=== PATIENT | male | born 1950 | race Caucasian/White ===

== ENCOUNTER 2024-04-08 15:16 | Inpatient (IN) | payer OTHER ==
--- NOTE | 2024-04-08 16:14 | RAD REPORT ---
EXAMINATION: US RIGHT LOWER EXTREMITY VENOUS DOPPLER CLINICAL INDICATION: SWELLING RIGHT TECHNIQUE: Complete bilateral duplex sonography of the RIGHT lower extremity veins was performed. The examination included compression for vein patency, color Doppler imaging and flow augmentation in response to distal compression of the distal external iliac, common femoral, femoral, popliteal, tibi al, and great and small saphenous veins. COMPARISON: No prior exam. FINDINGS: Duplex sonography testing of the veins of the RIGHT lower extremity was performed. Color flow imaging shows all veins to be compressible with [id number] color filling. Pulsatile and phasic flow is present within all lower extremity deep and superficial veins examined. IMPRESSION: There is no deep vein or superficial vein thrombosis.
[2024-04-08 17:14] LABS: Absolute Basophils 0.1 K/uL (0-0.5); Absolute Lymphocytes (CBC) 1.4 K/uL (0.7-4.9); Absolute Monocytes 1.1 K/uL (0.1-1.3); Basophils % 0.4 % (0-1.3); Eosinophils % 0.4 % (0-4.4); Hematocrit 37.8 % (39.6-49.0); Lymphocytes % 11.2 % (15.3-44.8); MCH 29.8 pg (27.0-35.0); MCHC 34.4 g/dL (32.0-36.0); MCV 86.7 fL (80-100); MPV 7.7 fL (7.6-11.3); Monocytes % 8.7 % (3.3-12.3); Neutrophils % 79.3 % (41.7-73.7); Nucleated Red Blood Cells % 0.1 % (0-0); Platelets 208 thou/uL (152-406); RBC Red Blood Cell Count 4.36 M/uL (4.33-5.43); Red Cell Distribution Width 13.7 % (12.1-15.2)
[2024-04-08] MEDS ORDERED: NA CHLORIDE 0.9% 250 ML ONE (17:28)
[2024-04-08] MEDS ORDERED: NA CHLORIDE 0.9% 100 ML ONE (17:28)
[2024-04-08] MEDS ORDERED: VANCOMYCIN 1 GM/VIAL ONE (17:28)
[2024-04-08 17:29] LABS: Anion Gap 9.1 mEq/L (5.0-15.0); Potassium 4.1 mEq/L (3.5-5.1)
[2024-04-08] MEDS ORDERED: PIPERACIL/TAZO 3.375 GM VIAL IV ONE (17:29)
[2024-04-08] MEDS ORDERED: NA CHLORIDE 0.9% 1,000 ML ONE (17:29)
[2024-04-08 17:30] LABS: Albumin 3.4 g/dL (3.4-5.0); Albumin/Globulin Ratio 0.8 (1.1-1.8); Bilirubin Total 0.4 mg/dL (0.2-1.0); Globulin 4.1 g/dL (2.3-3.5); Protein, Total 7.5 g/dL (6.4-8.2)
--- NOTE | 2024-04-08 18:36 | ER ---
Nurse's Notes [facility] Name: Constantino Carlos Age: 73 yrs Sex: Male : 1950 Arrival Date: 04/08/2024 Time: 15:16 Bed 26 Private MD: Diagnosis: Cellulitis, abscess Presentation: 04/08 15:35 Chief complaint: Patient states: REDNESS AND SWELLING TO RIGHT KNEE ONSET SUNDAY. PT cm10 STATES THAT HE WENT TO URGENT CARE ON SUNDAY AND WAS PLACED ON BACTRIM AND CEPHALEXIN. PT STATES THAT THE REDNESS IS GETTING WORSE. Coronavirus screen: Client denies travel out of the [place] in the last 14 days. Ebola Screen: Patient denies travel to an Ebola-affected area in the 21 days before illness onset. No symptoms or risks identified at this time. Initial Sepsis Screen: Does the patient meet any 2 criteria? HR > 90 bpm. Does the patient have a suspected source of infection? No. Patient's initial sepsis screen is negative. Risk Assessment: Do you want to hurt yourself or someone else? Patient reports no desire to harm self or others. Onset of symptoms was April 08, 2024. 15:35 Method Of Arrival: Ambulatory cm10 15:35 Acuity: REED 3 cm10 Triage Assessment: 15:37 General: Appears in no apparent distress. uncomfortable, Behavior is calm, cooperative. cm10 Pain: Complains of pain in right knee Pain does not radiate. Pain currently is 2 out of 10 on a pain scale. at worst was 8 out of 10 on a pain scale. Aggravated by increased activity. Neuro: No deficits noted. Level of Consciousness is awake, alert, obeys commands, Oriented to person, place, time, situation, Appropriate for age. Respiratory: No deficits noted. Airway is patent Respiratory effort is even, unlabored, Respiratory pattern is regular, symmetrical. Derm: Wound noted right knee Abscess located on right knee. Historical: - Allergies: 15:35 No Known Allergies; cm10 - PMHx: 15:35 Hypercholesterolemia; Hypertensive disorder; Diabetes mellitus; cm10 15:39 Gout; cm10 - Immunization history:: Adult Immunizations up to date. - Infectious Disease History:: Denies. - Social history:: Smoking status: Patient denies any tobacco usage or history of. Screenin:30 [facility] ED Fall Risk Assessment (Adult) History of falling in the last 3 months, db including since admission No falls in past 3 months (0 pts) Confusion or Disorientation No (0 pts) Intoxicated or Sedated No (0 pts) Impaired Gait No (0 pts) Mobility Assist Device Used No (0 pt) Altered Elimination No (0 pt) Score/Fall Risk Level 0 - 2 = Low Risk Oriented to surroundings, Maintained a safe environment. Abuse screen: Denies threats or abuse. Denies injuries from another. Nutritional screening: No deficits noted. Tuberculosis screening: No symptoms or risk factors identified. Assessment: 17:30 Reassessment: Patient appears in no apparent distress at this time. Patient and/or db family updated on plan of care and expected duration. Pain level reassessed. Patient is alert, oriented x 3, equal unlabored respirations, skin warm/dry/pink. General: Appears in no apparent distress. comfortable, Behavior is calm, cooperative. Pain: Complains of pain in right knee. Neuro: Level of Consciousness is awake, alert, obeys commands, Oriented to person, place, time, situation. Respiratory: Airway is patent Respiratory effort is even, unlabored, Respiratory pattern is regular, symmetrical. Derm: Abscess located on right knee. 19:20 General: Appears comfortable, Behavior is calm, cooperative. Pain: Complains of pain in ha1 right knee Pain does not radiate. Pain currently is 2 out of 10 on a pain scale. Quality of pain is described as aching. Neuro: Level of Consciousness is awake, alert, obeys commands, Oriented to person, place, time, situation. Cardiovascular: Capillary refill < 3 seconds Patient's skin is warm and dry. Respiratory: Airway is patent Respiratory effort is even, unlabored, Respiratory pattern is regular, symmetrical. GI: No signs and/or symptoms were reported involving the gastrointestinal system. Abdomen is round non-distended. : No signs and/or symptoms were reported regarding the genitourinary system. Derm: Abscess located on right knee. 19:30 Reassessment: provided snacks. ha1 20:30 Reassessment: Patient and/or family updated on plan of care and expected duration. Pain ha1 level reassessed. Patient is alert, oriented x 3, equal unlabored respirations, skin warm/dry/pink. 21:30 Reassessment: Patient and/or family updated on plan of care and expected duration. Pain ha1 level reassessed. Patient is alert, oriented x 3, equal unlabored respirations, skin warm/dry/pink. 22:00 Reassessment: Patient and/or family updated on plan of care and expected duration. Pain ha1 level reassessed. Patient is alert, oriented x 3, equal unlabored respirations, skin warm/dry/pink. Vital Signs: 15:35 BP 144 / 71; Pulse 108; Resp 19; Temp 98.2; Pulse Ox 98% on R/A; Weight 104.33 kg; cm10 Height 5 ft. 7 in. ; Pain 2/10; 17:30 BP 146 / 64; Pulse 92; Resp 16; Pulse Ox 99% ; db 19:30 BP 128 / 60; Pulse 94; Resp 17 S; Pulse Ox 99% on R/A; ha1 20:30 BP 138 / 69; Pulse 101; Resp 19 S; Pulse Ox 98% on R/A; ha1 22:00 BP 117 / 53; Pulse 101; Resp 19 S; Pulse Ox 97% on R/A; ha1 15:35 Body Mass Index 36.02 (104.33 kg, 170.18 cm) cm10 15:35 Pain Scale: Adult cm10 ED Course: 15:20 Patient arrived in ED. ra3 15:24 Slim Coffey MD is Attending Physician. sp3 15:37 Triage completed. cm10 15:39 Arm band placed on left wrist. Patient placed in waiting room. cm10 16:10 US Extremity Venous Unilateral Ltd In Process Unspecified. EDMS 17:00 Inserted saline lock: 20 gauge in right antecubital area, using aseptic technique. ty Blood collected. Flushed with 10 mL NS. 17:00 Initial lab(s) drawn, by me, sent to lab. First set of blood cultures drawn. ty 17:05 Blood Culture Adult (2) Sent. ty 17:05 CBC with Diff Sent. ty 17:06 CMP Sent. ty 17:06 Lactate w/ 2H reflex if indic. Sent. ty 17:23 Jaqui Camacho, RN is Primary Nurse. db 17:30 Patient has correct armband on for positive identification. Bed in low position. Call db light in reach. Side rails up X 1. Pulse ox on. NIBP on. Warm blanket given. Pillow given. 17:30 No provider procedures requiring assistance completed. db 18:35 Marc Melvin MD is Hospitalizing Provider. sp3 22:39 Inserted Patient admitted, IV remains in place. cp4 22:40 Provided Education on: admission. cp4 Administered Medications: 17:30 Drug: NS 0.9% IV 1000 ml IV at 1000 ml once; to be given as a bolus over 60 minutes db Route: IV; Rate: 1000 ml; Site: right antecubital; 18:20 Follow up: Response: No adverse reaction; IV Status: Completed infusion; IV Intake: db 1000ml 17:35 Drug: Piperacillin-Tazobactam IVPB 3.375 grams IVPB once over 60 mins; (mix in NS 100 db mL) Route: IVPB; Infused Over: 60 mins; Site: right antecubital; 18:15 Follow up: Response: No adverse reaction; IV Status: Completed infusion; IV Intake: db 100ml 18:36 Drug: vancoMYCIN IVPB 1 grams IVPB once over 2 hrs Route: IVPB; Infused Over: 2 hrs; db Site: right antecubital; 22:00 Follow up: Response: No adverse reaction; IV Status: Completed infusion; IV Intake: ha1 500ml Medication: 17:30 VIS not applicable for this client. db Intake: 18:15 IV: 100ml; Total: 100ml. db 18:20 IV: 1000ml; Total: 1100ml. db 22:00 IV: 500ml; Total: 1600ml. ha1 Outcome: 18:35 Decision to Hospitalize by Provider. sp3 22:39 Admitted to ER Hold. Please see [facility] for further documentation. cp4 22:39 Condition: stable 22:39 Instructed on the need for admit, 04/09 17:46 Patient left the ED. db Signatures: Dispatcher [employer] Slim Rodriguez MD MD sp3 Genoveva Craven RN RN ha1 Jaqui Camacho RN RN db Kim Maravilla RN RN 10 Reena Regalado cp4 Flora Ohara ra3 Luis Mchugh
--- NOTE | 2024-04-08 18:36 | EDPHYS ---
Physician Documentation [facility] Name: Constantino Carlos Age: 73 yrs Sex: Male : 1950 Arrival Date: 04/08/2024 Time: 15:16 Bed 26 Private MD: ED Physician Slim Coffey HPI: 04/08 16:11 This 73 yrs old Male presents to ER via Ambulatory with complaints of Leg Pain - Right. sp3 16:11 . sp3 16:27 7. sp3 16:41 73-year-old male with history of hyperlipidemia, hypertension, diabetes, gout presents sp3 to the ED with chief complaint swelling and erythema to the right lower extremity just distal to the knee. Patient states has been going on for 3 to 4 days with significant increase in redness and pain. Patient states that he was gardening and may have knelt down and had some light trauma from brush at the tibial tuberosity level. He denies fever, head, neck pain, chest pain, shortness of breath no abdominal pain, vomiting, diarrhea,, rash anywhere else, bleeding or any other signs or symptoms on ROS at this time.. Historical: - Allergies: 15:35 No Known Allergies; cm10 - PMHx: 15:35 Hypercholesterolemia; Hypertensive disorder; Diabetes mellitus; cm10 15:39 Gout; cm10 - Immunization history:: Adult Immunizations up to date. - Infectious Disease History:: Denies. - Social history:: Smoking status: Patient denies any tobacco usage or history of. ROS: 16:42 Constitutional: Negative for fever, chills, and weight loss, Eyes: Negative for injury, sp3 pain, redness, and discharge, Neck: Negative for injury, pain, and swelling, Cardiovascular: Negative for chest pain, palpitations, and edema, Respiratory: Negative for shortness of breath, cough, wheezing, and pleuritic chest pain, Abdomen/GI: Negative for abdominal pain, nausea, vomiting, diarrhea, and constipation, Back: Negative for injury and pain, Neuro: Negative for headache, weakness, numbness, tingling, and seizure, Psych: Negative for depression, anxiety, suicide ideation, homicidal ideation, and hallucinations, Allergy/Immunology: Negative for hives, rash, and allergies, Endocrine: Negative for neck swelling, polydipsia, polyuria, polyphagia, and marked weight changes, Hematologic/Lymphatic: Negative for swollen nodes, abnormal bleeding, and unusual bruising, 16:42 All other systems are negative, Exam: 16:42 Constitutional: This is a well developed, well nourished patient who is awake, alert, sp3 and in no acute distress. Head/Face: Normocephalic, atraumatic. Eyes: Pupils equal round and reactive to light, extra-ocular motions intact. Lids and lashes normal. Conjunctiva and sclera are non-icteric and not injected. Cornea within normal limits. Periorbital areas with no swelling, redness, or edema. Neck: Trachea midline, no thyromegaly or masses palpated, and no cervical lymphadenopathy. Supple, full range of motion without nuchal rigidity, or vertebral point tenderness. No Meningismus. Chest/axilla: Normal chest wall appearance and motion. Nontender with no deformity. No lesions are appreciated. Cardiovascular: Regular rate and rhythm with a normal S1 and S2. No gallops, murmurs, or rubs. Normal PMI, no JVD. No pulse deficits. Respiratory: Lungs have equal breath sounds bilaterally, clear to auscultation and percussion. No rales, rhonchi or wheezes noted. No increased work of breathing, no retractions or nasal flaring. Back: No spinal tenderness. No costovertebral tenderness. Full range of motion. Neuro: Awake and alert, GCS 15, oriented to person, place, time, and situation. Cranial nerves II-XII grossly intact. Motor strength 5/5 in all extremities. Sensory grossly intact. Cerebellar exam normal. Normal gait. 16:42 Musculoskeletal/extremity: 3 cm area of fluctuance consistent with abscess with overlying erythema now spreading to significant parts of the leg both distally and proximally. Patient is mildly tachycardic but afebrile with normal pressure.. Vital Signs: 15:35 BP 144 / 71; Pulse 108; Resp 19; Temp 98.2; Pulse Ox 98% on R/A; Weight 104.33 kg; cm10 Height 5 ft. 7 in. ; Pain 2/10; 17:30 BP 146 / 64; Pulse 92; Resp 16; Pulse Ox 99% ; db 19:30 BP 128 / 60; Pulse 94; Resp 17 S; Pulse Ox 99% on R/A; ha1 20:30 BP 138 / 69; Pulse 101; Resp 19 S; Pulse Ox 98% on R/A; ha1 22:00 BP 117 / 53; Pulse 101; Resp 19 S; Pulse Ox 97% on R/A; ha1 15:35 Body Mass Index 36.02 (104.33 kg, 170.18 cm) cm10 15:35 Pain Scale: Adult cm10 MDM: 15:37 Medical Screening Exam initiated sp3 16:43 Data reviewed: vital signs, nurses notes, lab test result(s), radiologic studies. ED sp3 course: 73-year-old male with right lower extremity pain and erythema. Differential diagnosis includes cellulitis, abscess, other infectious process. I am at highly suspicious of inflammatory joint issue, DVT or any other critical process. Workup will include labs, antibiotics, ultrasound of the right lower extremity venous, and general supportive care with probable admission.. 12 15:40 Order name: Blood Culture Adult (2) sp3 04/08 15:40 Order name: CBC with Diff; Complete Time: 17:36 sp3 04/08 15:40 Order name: CMP; Complete Time: 17:36 sp3 04/08 15:40 Order name: Lactate w/ 2H reflex if indic.; Complete Time: 17:36 sp3 04/08 21:34 Order name: Urinalysis w/ reflexes EDMS 04/08 21:34 Order name: CBC with Automated Diff EDMS 04/08 21:34 Order name: CBC with Automated Diff EDMS 04/08 21:34 Order name: Comprehensive Metabolic Panel EDMS 04/08 21:34 Order name: Comprehensive Metabolic Panel EDMS 04/09 07:56 Order name: Glucose, Ancillary Testing EDMS 04/09 11:59 Order name: Glucose, Ancillary Testing EDMS 04/09 16:28 Order name: Glucose, Ancillary Testing EDMS 04/08 15:40 Order name: US Extremity Venous Unilateral Ltd; Complete Time: 16:40 sp3 04/08 15:40 Order name: IV Saline Lock - Large Bore; Complete Time: 17:05 sp3 04/08 15:40 Order name: Labs collected and sent; Complete Time: 17:05 sp3 04/08 15:40 Order name: Vital Signs; Complete Time: 17:08 sp3 Administered Medications: 17:30 Drug: NS 0.9% IV 1000 ml IV at 1000 ml once; to be given as a bolus over 60 minutes db Route: IV; Rate: 1000 ml; Site: right antecubital; 18:20 Follow up: Response: No adverse reaction; IV Status: Completed infusion; IV Intake: db 1000ml 17:35 Drug: Piperacillin-Tazobactam IVPB 3.375 grams IVPB once over 60 mins; (mix in NS 100 db mL) Route: IVPB; Infused Over: 60 mins; Site: right antecubital; 18:15 Follow up: Response: No adverse reaction; IV Status: Completed infusion; IV Intake: db 100ml 18:36 Drug: vancoMYCIN IVPB 1 grams IVPB once over 2 hrs Route: IVPB; Infused Over: 2 hrs; db Site: right antecubital; 22:00 Follow up: Response: No adverse reaction; IV Status: Completed infusion; IV Intake: ha1 500ml Disposition Summary: 04/08/24 18:35 Hospitalization Ordered Notes: Hospitalization Status: Inpatient Admission sp3 Provider: Marc Melvin sp3 Condition: Stable sp3 Problem: new sp3 Symptoms: have worsened sp3 Bed/Room Type: Standard sp3 Location: Telemetry/MedSurg (Inpatient)(04/09/24 16:04) bd Room Assignment: 207(04/09/24 16:04) bd Diagnosis - Cellulitis, abscess sp3 Forms: - Medication Reconciliation Form sp3 - SBAR form sp3 - Leadership Thank You Letter sp3 Signatures: Dispatcher [employer] EDCrista Payton Lacie, RN RN lg3 Slim Coffey MD MD sp3 Jaqui Camacho RN Kim Cleaning RN RN cm10 Radha Johnson [facility] Genoveva Craven RN ha1 Corrections: (The following items were deleted from the chart) 15:41 15:41 BLOOD CULTURE*+BA.LAB.BRZ ordered. EDMS EDMS 15:41 15:41 CBC+H.LAB.BRZ ordered. EDMS EDMS 15:41 15:41 COMPREHENSIVE METABOLIC PANEL+C.LAB.BRZ ordered. EDMS EDMS 15:41 15:41 LACTATE+C.LAB.BRZ ordered. EDMS EDMS 15:41 15:41 Extremity Venous Uni Ltd+US.RAD.BRZ ordered. EDMS EDMS 20:49 18:35 Telemetry/MedSurg (Inpatient) sp3 kmf 20:49 18:35 sp3 kmf 20:52 20:49 HLD2 kmf lg3 04/09 16:04 12 20:49 [facility] ER HOLD kmf bd 04/09 16:04 12 20:52 ERHOLD- lg3 bd
--- NOTE | 2024-04-08 21:25 | P.HP ---
Certification for Inpatient With expected LOS: >2 Midnights Practitioner: I am a practitioner with admitting privileges, knowledge of patient current condition, hospital course, and medical plan of care. Services: Services provided to patient in accordance with Admission requirements found in Title 42 Section 412.3 of the Code of Federal Regulations Patient History Date of Service: 04/08/24 Reason for admission: cellulitis History of Present Illness: 73-year-old male with history of prediabetes presents to the emergency room with complaints of redness and swelling to the right leg and knee. States that he was working outside and placed knee on the ground. Onset 5 days ago. With progressive redness. Reports that 2 days ago he went to urgent care and was placed on Bactrim and cephalexin. Progressively has gotten worse. He does report some discomfort. He reports having some possible fevers and chills. And does report right lower extremity swelling. He reports he has had skin infecti on in the past w greater than 50 years ago. Emergency room an ultrasound was done of his right lower extremity to rule out DVT Review of Systems 10-point ROS is otherwise unremarkable General: Fever, Chills, Sweats Integumentary: Rash, Other Physical Examination - Physical Exam General: Alert, Oriented x3 HEENT: Atraumatic, Normocephalic Respiratory: Clear to auscultation bilaterally, Normal air movement Cardiovascular: Regular rate/rhythm, Normal S1 S2, Edema Gastrointestinal: Soft and benign, Non-distended Musculoskeletal: Swelling Integumentary: Other (Right lower extremity redness, fluctuation inferior patella with erythema) - Studies Laboratory Data (last 24 hrs) 04/08/24 04/08/24 17:00 17:00 WBC 12.60 H Hgb 13.0 L Hct 37.8 L Plt Count 208 Sodium 138 Potassium 4.1 BUN 18 Creatinine 1.13 Glucose 142 H Total Bilirubin 0.4 AST 17 ALT 27 Alkaline Phosphatase 69 Assessment and Plan - Problems (Diagnosis) (1) Cellulitis Current Visit: Yes Status: Acute - Plan 73-year-old male with history of diabetes, hypertension, hyperlipidemia presents with complaints of right lower extremity swelling and redness. Right lower extremity cellulitis -- With some fluctuance -- IV vancomycin and Zosyn ordered in ER -- He did appear slightly flushed in the emergency room. If this is related to his vancomycin recommend to discontinue that. Will continue that for now we will give him a dose of Benadryl Continue Zosyn Follow-up cultures May need surgical evaluation Diabetes --Monitor fingerstick blood sugars with sliding scale insulin Hypertension -- Await medication reconciliation to be completed, restart home antihypertensives hyperlipidemia gout --Await medication reconciliation to be completed restart home medication DVT: Lovenox Code full - Advance Directives Does patient have a Living Will: No Does patient have a Durable POA for Healthcare: No
[2024-04-08] MEDS: DIPHENHYDRAMINE 25 MG TAB/CAP PO ONE (21:30)
[2024-04-08] MEDS ORDERED: GLUCAGON 1 MG/VIAL IM PRN (21:32)
[2024-04-08] MEDS ORDERED: D10W 125 ML IV PRN (21:32)
[2024-04-08 22:50] VITALS: BMI 36.0
[2024-04-08] MEDS ORDERED: DIPHENHYDRAMINE 25 MG TAB/CAP ONE (22:51)
[2024-04-08] MEDS: VANCOMYCIN 750 MG in NA CHLORIDE 0.9% 150 ML IVPB ONE (23:00)
[2024-04-09] MEDS ORDERED: VANCOMYCIN 1 GM/VIAL ONE (00:25)
[2024-04-09] MEDS ORDERED: NA CHLORIDE 0.9% 250 ML ONE (00:25)
[2024-04-09] MEDS ORDERED: NA CHLORIDE 0.9% 100 ML ONE ×2 (02:03→08:21)
[2024-04-09] MEDS ORDERED: PIPERACIL/TAZO 3.375 GM VIAL IV ONE ×2 (02:03→08:21)
[2024-04-09] MEDS: PIPER TAZO 3.375 GM in NA CHLORIDE 0.9% 100 ML IV SCH ×2 (02:15→20:30)
[2024-04-09 06:15] LABS: Absolute Lymphocytes (CBC) 1.4 K/uL (0.7-4.9); Absolute Neutrophil 7.3 K/uL (1.8-8.0); Basophils % 0.5 % (0-1.3); Eosinophils % 0.4 % (0-4.4); Hematocrit 33.7 % (39.6-49.0); Hemoglobin 12.1 g/dL (13.6-17.9); MCH 30.7 pg (27.0-35.0); MCHC 35.8 g/dL (32.0-36.0); MCV 85.8 fL (80-100); MPV 7.7 fL (7.6-11.3); Monocytes % 10.3 % (3.3-12.3); Neutrophils % 74.8 % (41.7-73.7); Platelets 204 thou/uL (152-406); RBC Red Blood Cell Count 3.92 M/uL (4.33-5.43); Red Cell Distribution Width 13.6 % (12.1-15.2)
[2024-04-09 06:27] LABS: Albumin 2.9 g/dL (3.4-5.0); Albumin/Globulin Ratio 0.8 (1.1-1.8); Anion Gap 7.1 mEq/L (5.0-15.0); Bilirubin Total 0.6 mg/dL (0.2-1.0); Globulin 3.7 g/dL (2.3-3.5); Potassium 4.1 mEq/L (3.5-5.1); Protein, Total 6.6 g/dL (6.4-8.2)
[2024-04-09] MEDS: INSULIN REGULAR (HUMAN) 100 UNIT/ML SQ SCH (07:30)
[2024-04-09] MEDS ORDERED: ENOXAPARIN 40 MG/0.4 ML SQ ONE (08:21)
[2024-04-09] MEDS: ENOXAPARIN 40 MG/0.4 ML SQ SCH (09:00)
[2024-04-09] MEDS ORDERED: ACETAMINOPHEN 325 MG TABLET ONE (09:26)
[2024-04-09] MEDS: ACETAMINOPHEN 325 MG TABLET PO PRN (09:41)
[2024-04-09 10:24] LABS: Urine Bilirubin NEGATIVE (Negative); Urine Blood Negative (Negative); Urine Clarity Clear (Clear); Urine Color Light-Yellow (Yellow); Urine Glucose NEGATIVE (Negative); Urine Ketones NEGATIVE (Negative); Urine Microscopic Reflex YN NO UMIC; Urine Nitrite NEGATIVE (Negative); Urine Protein NEGATIVE (Negative); Urine Urobilinogen Normal (Normal)
[2024-04-09] MEDS ORDERED: VANCOMYCIN 1 GM in NA CHLORIDE 0.9% 250 ML IVPB SCH (12:00)
[2024-04-09] MEDS: VANCOMYCIN 2 GM in NA CHLORIDE 0.9% 500 ML IVPB SCH (17:10)
--- NOTE | 2024-04-09 17:27 | P.PN ---
Subjective Date of Service: 04/09/24 Chief Complaint: cellulitis Patient report pain in the right knee. No recorded fever. Physical Examination - Vital Signs Temperature: 97.8 F Blood Pressure: 135/67 Pulse: 87 Respirations: 16 Pulse Ox (%): 98 - Studies Laboratory Data (last 24 hrs) 04/08/24 04/08/24 17:00 17:00 WBC 12.60 H Hgb 13.0 L Hct 37.8 L Plt Count 208 Sodium 138 Potassium 4.1 BUN 18 Creatinine 1.13 Glucose 142 H Total Bilirubin 0.4 AST 17 ALT 27 Alkaline Phosphatase 69 Assessment And Plan - Plan Physical examination General: Alert and oriented x3, NAD, HEENT: Conjunctiva not pale, anicteric sclera Neck: Supple, no elevated JVD Heart: Heart sounds 1 and 2 normal, regular rhythm, normal rate, no pedal edema Lungs: Clear to auscultation bilaterally, adequate breath sounds bilaterally, no rhonchi or crackles. Abdomen: Soft, nondistended, nontender, normal bowel sounds. Extremities: No tenderness, no deformity Skin: Normal skin turgor, area of tenderness and fluctuance surrounded by erythema-right knee. Neuro: No focal motor deficit. Normal speech. Psychiatry: Normal mood, no agitation. Assessment and plan Right lower extremity cellulitis Right knee abscess Continue IV vancomycin and Zosyn. Follow-up cultures General Surgery Dr. Maravilla consulted to evaluate for possible I&D. Diabetes melitis type II Insulin sliding scale Hypertension Patient is currently normotensive. Resume home antihypertensives. hyperlipidemia Gout Continue home medications DVT prophylaxis: Lovenox Advanced directive: code full
[2024-04-09] MEDS: DIPHENHYDRAMINE 25 MG TAB/CAP PO ONE (20:29)
[2024-04-09] MEDS ORDERED: VANCOMYCIN 1.75 GM in NA CHLORIDE 0.9% 500 ML IVPB SCH (23:00)
[2024-04-10] MEDS: clonazePAM 0.5 MG TAB PO ONE (08:04)
[2024-04-10] MEDS: Ringers Lactate 1,000 ML IV ONE (08:40)
[2024-04-10] MEDS ORDERED: LIDOCAINE 2% MPF 5 ML VIAL ONE (08:49)
[2024-04-10] MEDS ORDERED: FENTANYL CITR 100 MCG/2 ML ONE (08:49)
[2024-04-10] MEDS ORDERED: ONDANSETRON 4 MG/2 ML VIAL ONE (08:49)
[2024-04-10] MEDS ORDERED: propofoL 200 MG/20 ML VIAL IV ONE (08:49)
[2024-04-10] MEDS: BUPIVACAINE 0.5% PF 10 ML VIAL ONE (11:06)
--- NOTE | 2024-04-10 11:17 | P.CNS ---
Date of Consult: 04/10/24 Chief Complaint: cellulitis . infected traumatic wound with abscess, necrotic tissue History of Present Illness: &! y/o with contusion over his right knee developing open wound and cellulitis that extend from the knee to distal leg. Allergies No Known Allergies Allergy (Unverified 04/08/24 22:45) Home Medications: Metformin ER [Glucophage ER] 500 mg PO DAILY 04/08/24 Semaglutide [Ozempic] 1 mg SQ SEECOM 04/08/24 clonazePAM [Clonazepam] 0.25 mg SL PRN PRN 04/10/24 Review of Systems Eyes: Unremarkable ENT: Unremarkable Respiratory: Unremarkable Cardiovascular: Unremarkable Gastrointestinal: Unremarkable Genitourinary: Unremarkable Physical Examination Temp Pulse Resp BP Pulse Ox 97.5 F 90 16 130/60 94 04/10/24 08:00 04/10/24 08:00 04/10/24 08:00 04/10/24 08:00 04/10/24 08:00 General: Alert, In no apparent distress, Oriented x3, Cooperative HEENT: Normocephalic, PERRLA, EOMI Neck: Supple Respiratory: Normal air movement Gastrointestinal: Soft and benign, No rebound, No guarding Musculoskeletal: Erythema, Tenderness, Warmth Integumentary: Erythema, Warmth Neurological: Normal speech Conclusions/Impression: Excisional debridement of Right knee infected wound . BAR explained including infection, bleeding, damage to adjacent structures, non healing wound [place] neeraj .
[2024-04-10] MEDS: BUPIVACAINE 0.5% PF 10 ML VIAL SQ ONE ×2 (11:30→11:35)
--- NOTE | 2024-04-10 11:50 | P.BOP ---
Preoperative diagnosis: infected traumatic wound right knee with abscess, right leg cellulitis Postoperative diagnosis: same Primary procedure: Excisional debridement of infected traumatic wound right knee with abscess Secondary procedure: drainage 5x4cm Estimated blood loss: <10cc Specimen: pus Findings: pus, devitalized tissue Anesthesia: General Complications: None Transferred to: Recovery Room Condition: Good
[2024-04-10] MEDS: HYDROMORPHONE HCL 1 MG/ML INJ ONE (12:11)
[2024-04-10] MEDS ORDERED: MORPHINE 2 MG/ML SYR IV PRN (14:26)
[2024-04-10] MEDS: HYDROCODONE/APAP 5/325 MG TAB PO PRN (14:39)
--- NOTE | 2024-04-10 17:45 | P.PN ---
Subjective Date of Service: 04/10/24 Chief Complaint: cellulitis . infected traumatic wound with abscess, necrotic tissue Patient's knee erythema has improved, however area of fluctuance is more demarcated. No recorded fever. He reports improvement in his pain. Physical Examination - Vital Signs Temperature: 98.3 F Blood Pressure: 140/63 Pulse: 91 Respirations: 16 Pulse Ox (%): 93 Assessment And Plan - Plan Physical examination General: Alert and oriented x3, NAD, HEENT: Anicteric sclera Neck: Supple, no elevated JVD Heart: Heart sounds 1 and 2 normal, regular rhythm, normal rate, no pedal edema Lungs: Clear to auscultation bilaterally, adequate breath sounds bilaterally, no rhonchi or crackles. Abdomen: Soft, nondistended, nontender, normal bowel sounds. Extremities: No tenderness, no deformity Skin: Normal skin turgor, area of tenderness and fluctuance surrounded by erythe ma-right knee. Erythema and swelling improved Neuro: No focal motor deficit. Normal speech. Psychiatry: Normal mood, no agitation. Assessment and plan Right lower extremity cellulitis Right knee abscess. Status post excisional debridement by Dr. Maravilla Wound is packed. Continue IV vancomycin and Zosyn. Follow-up cultures Analgesics as needed Diabetes melitis type II Insulin sliding scale Hypertension Continue home antihypertensives. DVT prophylaxis: Lovenox Advanced directive: code full
[2024-04-10 18:43] LABS: Magnesium 2.1 mg/dL (1.6-2.4); Phosphorus 3.5 mg/dL (2.5-4.9)
--- NOTE | 2024-04-10 22:58 | OP ---
Date of Procedure: 04/10/2024 Surgeon: Alex Maravilla MD Preoperative Diagnoses: Infected traumatic wound, right knee with abscess and right leg cellulitis. Postoperative Diagnoses: Infected traumatic wound, right knee with abscess and right leg cellulitis. Procedure: Excisional debridement of infected traumatic wound, right knee with abscess drainage, 5 x 4 cm. Estimated Blood Loss: Less than 10 cc. Specimen: Pus. Finding: Pus and devitalized tissue. Anesthesia: General plus local. Indications: This is a case of a 73-year-old patient who comes to us with a right knee nonhealing wo und, had cellulitis of the entire leg all the way down to the ankle. The source of that looked like there is devitalized tissue on the right knee region, so we offered him debridement subcu, and draina ge of an abscess with benefits, alternatives, and risks including, but not limited to, infection, ble eding, damage to adjacent structures, anesthesia complication, nonhealing wound, AL, and even . He also understands this may not relieve any symptoms. He might need more than one surgical interve ntion, and he will require wound care. He signed a consent. Description Of Procedure: The area of concern was marked by me and the patient in the holding room. The patient was brought to the operating room, placed in supine position. Anesthesia was without com plication. A time-out was called. Right knee was prepped and draped in usual sterile fashion. We p roceeded then to using a knife to remove the devitalized tissue. Immediately, we noticed an abscess underneath, that was cultured. The area was irrigated. Hemostasis was obtained. Debridement was do ne and then hemostasis was obtained with Bovie cauterizer. The patient tolerated procedure well. Th e sponge count and instrument counts were correct. Bone was not exposed. Area was covered with ster ile dressings and sent to recovery in stable condition. DEANNE/MODL Voice ID: [id number] Report ID: [id number]
[2024-04-11 05:10] LABS: Absolute Eosinophils 0.1 K/uL (0-0.5); Absolute Lymphocytes (CBC) 1.4 K/uL (0.7-4.9); Absolute Monocytes 0.7 K/uL (0.1-1.3); Absolute Neutrophil 4.6 K/uL (1.8-8.0); Basophils % 0.7 % (0-1.3); Eosinophils % 1.2 % (0-4.4); Hematocrit 36.4 % (39.6-49.0); Hemoglobin 12.7 g/dL (13.6-17.9); Lymphocytes % 20.1 % (15.3-44.8); MCH 30.2 pg (27.0-35.0); MCHC 34.9 g/dL (32.0-36.0); MCV 86.5 fL (80-100); MPV 7.6 fL (7.6-11.3); Monocytes % 10.5 % (3.3-12.3); Neutrophils % 67.5 % (41.7-73.7); Nucleated Red Blood Cells % 0.3 % (0-0); Platelets 229 thou/uL (152-406); RBC Red Blood Cell Count 4.21 M/uL (4.33-5.43); Red Cell Distribution Width 13.3 % (12.1-15.2)
[2024-04-11 05:24] LABS: Anion Gap 8.3 mEq/L (5.0-15.0); Potassium 4.3 mEq/L (3.5-5.1)
[2024-04-11] MEDS: VANCOMYCIN 2 GM in NA CHLORIDE 0.9% 500 ML IVPB SCH (10:56)
[2024-04-11] MEDS ORDERED: CLONAZEPAM 0.25 MG SL PRN (13:02)
--- NOTE | 2024-04-11 13:03 | P.PN ---
Subjective Date of Service: 04/11/24 Chief Complaint: cellulitis . infected traumatic wound with abscess, necrotic tissue Status post debridement of right knee abscess. No recorded fever. Patient stated his knee pain is much better. Physical Examination - Vital Signs Temperature: 99.2 F Blood Pressure: 138/70 Pulse: 85 Respirations: 16 Pulse Ox (%): 97 Assessment And Plan - Plan Physical examination General: Alert and oriented x3, NAD, Neck: Supple, no elevated JVD Heart: Heart sounds 1 and 2 normal, regular rhythm, normal rate, no pedal edema Lungs: Clear to auscultation bilaterally, adequate breath sounds bilaterally, no rhonchi or crackles. Abdomen: Soft, nondistended, nontender, normal bowel sounds. Extremities: No tenderness, no deformity Skin: Normal skin turgor, right knee debridement wound packed and dressed. Neuro: No focal motor deficit. Normal speech. Psychiatry: Normal mood, no agitation. Assessment and plan Right lower extremity cellulitis Right knee abscess. Status post excisional debridement by Dr. Maravilla Wound is packed. Deep tissue wound culture is growing coagulase positive staph. Continue IV vancomycin and Zosyn. Follow-up cultures for organism identification and sensitivity. Analgesics as needed General Surgery Dr. Maravilla is following. Diabetes melitis type II Insulin sliding scale DVT prophylaxis: Lovenox Advanced directive: code full
[2024-04-11 14:04] LABS: Magnesium 2.2 mg/dL (1.6-2.4); Phosphorus 3.2 mg/dL (2.5-4.9)
[2024-04-12 04:36] LABS: Absolute Eosinophils 0.1 K/uL (0-0.5); Absolute Lymphocytes (CBC) 1.3 K/uL (0.7-4.9); Absolute Monocytes 0.6 K/uL (0.1-1.3); Absolute Neutrophil 3.5 K/uL (1.8-8.0); Basophils % 0.8 % (0-1.3); Eosinophils % 1.5 % (0-4.4); Hematocrit 37.5 % (39.6-49.0); Hemoglobin 12.7 g/dL (13.6-17.9); MCH 29.2 pg (27.0-35.0); MCHC 33.8 g/dL (32.0-36.0); MCV 86.3 fL (80-100); MPV 7.7 fL (7.6-11.3); Monocytes % 10.9 % (3.3-12.3); Neutrophils % 63.8 % (41.7-73.7); Platelets 211 thou/uL (152-406); RBC Red Blood Cell Count 4.34 M/uL (4.33-5.43); Red Cell Distribution Width 13.5 % (12.1-15.2)
[2024-04-12 04:55] LABS: Anion Gap 7.1 mEq/L (5.0-15.0); Potassium 4.1 mEq/L (3.5-5.1)
[2024-04-12 07:15] VITALS: O2SAT 96
[2024-04-12 11:53] VITALS: BP 153/78; TEMP 99.1
--- NOTE | 2024-04-12 12:02 | P.DS ---
Admission Date: 04/08/24 Discharge Date: 04/12/24 Disposition: ROUTINE DISCHARGE Discharge Condition: FAIR Reason for Admission: cellulitis . infected traumatic wound with abscess, necrotic tissue Brief History of Present Illness: 73-year-old male with history of prediabetes presents to the emergency room with complaints of redness and swelling to the right leg and knee. He stated that he was working outside and placed knee on the ground. Onset 5 days ago. With progressive redness. He went to urgent care and was placed on Bactrim and cephalexin, however the wound progressively got worse with increasing redness and more swelling. Emergency room an ultrasound was done of his right lower extremity to rule out DVT. Patient had moderate leukocytosis in the ED. He was hospitalized for further management of right knee cellulitis and abscess. Hospital Course: Right lower extremity cellulitis Right knee abscess. General surgery Dr. Maravilla consulted Status post excisional debridement by Dr. Maravilla Wound is packed. Deep tissue wound culture is growing MSSA. Patient treated with IV vancomycin and Zosyn as inpatient. Noted patient was taking Bactrim and cephalexin and outpatient. Patient discharged with oral Levaquin. Analgesics as needed Dr. Maravilla plan to follow-up patient next week in the wound care clinic. Wound care instructions taught to patient and . Diabetes melitis type II Managed insulin sliding scale as inpatient. Home diabetic regimen-metformin and semaglutide resumed on discharge. Vital Signs/Physical Exam: Temp Pulse Resp BP Pulse Ox 99.1 F 93 H 14 153/78 H 96 04/12/24 11:51 04/12/24 11:51 04/12/24 11:51 04/12/24 11:51 04/12/24 11:51 General: Alert, In no apparent distress, Oriented x3 HEENT: Mucous membr. moist/pink Neck: Supple, JVD not distended Respiratory: Clear to auscultation bilaterally, Normal air movement Cardiovascular: No edema, Regular rate/rhythm, Normal S1 S2 Gastrointestinal: Normal bowel sounds, Soft and benign, Non-distended, No tenderness Musculoskeletal: No swelling Integumentary: Other (Right knee debrided wound with clean dressing.) Neurological: Normal speech, Normal strength at 5/5 x4 extr Laboratory Data at Discharge: WBC 5.50 thou/uL (4.3-10.9) 04/12/24 04:09 Hgb 12.7 g/dL (13.6-17.9) L 04/12/24 04:09 Hct 37.5 % (39.6-49.0) L 04/12/24 04:09 Plt Count 211 thou/uL (152-406) 04/12/24 04:09 Sodium 136 mEq/L (136-145) 04/12/24 04:09 Potassium 4.1 mEq/L (3.5-5.1) 04/12/24 04:09 BUN 13 mg/dL (7-18) 04/12/24 04:09 Creatinine 0.95 mg/dL (0.70-1.30) 04/12/24 04:09 Glucose 135 mg/dL (74-106) H 04/12/24 04:09 Phosphorus 3.2 mg/dL (2.5-4.9) 04/11/24 13:40 Magnesium 2.2 mg/dL (1.6-2.4) 04/11/24 13:40 Total Bilirubin 0.6 mg/dL (0.2-1.0) 04/09/24 05:46 AST 16 U/L (15-37) 04/09/24 05:46 ALT 24 U/L (16-61) 04/09/24 05:46 Alkaline Phosphatase 51 U/L (45-117) D 04/09/24 05:46 Home Medications: Metformin ER [Glucophage ER*] 500 mg PO DAILY 04/08/24 Semaglutide [Ozempic] 1 mg SQ SEECOM 04/08/24 clonazePAM [Clonazepam] 0.25 mg SL PRN PRN 04/10/24 Codeine/APAP [Tylenol W/Codeine #3 tab] 1 tab PO Q6HP PRN #20 tab 04/12/24 levoFLOXacin [Levaquin] 750 mg PO DAILY #10 tab 04/12/24 New Medications: Codeine/APAP [Tylenol W/Codeine #3 tab] 1 tab PO Q6HP PRN #20 tab PRN Reason: Pain levoFLOXacin [Levaquin] 750 mg PO DAILY #10 tab Physician Discharge Instructions: Wound Care Iodoform packing to righ knee wound, kerlix and Hood wrap daily. Followup: Alex Maravilla MD [ACTIVE - CAN ADMIT] - 1 Week (At the wound care clinic.) Anastacio Bauman MD [Primary Care Provider] - 1-2 Weeks Time spent managing pt's care (in minutes): 37
--- NOTE | 2024-04-12 12:18 | PN ---
Date of Progress Note: 04/12/2024 Diagnosis: Cellulitis of the right leg. Subjective: The patient is doing great. All the erythema completely gone. He still have an open ar ea that is with doing dressing changes. Swelling is gone. No Homans signs. No calf tenderness. Objective: Chest: Clear. Abdomen: Soft and depressible. Extremities: Good capillary refill. Peripheral pulses are present. No Homans signs. No cyanosis. Intact surgical site. Cultures, final report is still pending. Plan: The patient will be going home with dressing changes. The nurse is showing once again today d ressing changes. [facility] and they were asked to call fo r appointment. The patient will be going home on pain medication and the antibiotics by mouth. DEANNE/FELIPE Voice ID: [id number] Report ID: [id number]
[2024-04-12] MEDS ORDERED: VANCOMYCIN 2 GM in NA CHLORIDE 0.9% 500 ML IVPB SCH (17:00)
== END 2024-04-12 12:40 | disposition home or self-care (01) | DRG 264 ==
LOC: ER 15:16 → ERHOLD 21:25 → 2ND 04-09 16:48
PROVIDERS: ADMIT Internal Medicine; ATTEND Internal Medicine
PROC: 0JBN0ZZ Excision of Right Lower Leg Subcutaneous Tissue and Fascia, Open Approach (ICD-10-PCS; principal; 2024-04-10 11:13)
DX: E11.52 Type 2 diabetes mellitus with diabetic peripheral angiopathy with gangrene (principal); L02.415 Cutaneous abscess of right lower limb; L03.115 Cellulitis of right lower limb; I10 Essential (primary) hypertension; M10.9 Gout, unspecified; E78.00 Pure hypercholesterolemia, unspecified; B95.61 Methicillin susceptible Staphylococcus aureus infection as the cause of diseases classified elsewhere; Z79.84 Long term (current) use of oral hypoglycemic drugs; Z79.899 Other long term (current) drug therapy
CPT/HCPCS: 36415; 80048; 80053; 80202; 81003; 82947; 83036; 83605; 83735; 84100; 85025; 87040; 87070; 87075; 87077; 87186; 87205; 88304; 88305; 93971; 94010; 96365; 96366; 96367; 99285; J1171; J1650; J2003; J2405; J2543; J2704; J3010; J7030; J7040; J7050; J7120